=== PATIENT | male | born 1945 | race African-American/Black ===

== ENCOUNTER → 2020-04-25 | Outpatient (CLI) | payer MEDICARE ==
[2019-10-29 10:56] VITALS: BP 118/65
[~2020-04-25] MED LIST: ASPI-612 PO; ATOR40TA59 PO; METO25TA4 PO; NITR0.4T24 SL; TICA90TA PO
--- NOTE | 2020-04-25 10:42 | RAD ---
Clinical Indications: Hypertension, cerebrovascular accident. Exam : Carotid Duplex with Grayscale Ultrasound and Spectral and Color Doppler Analysis: PQRS Compliance Statement - Stenosis calculations for CT, MR and conventional angiography are based upon measurement of the distal ICA diameter in accordance with the NASCET methodology. Stenosis calculations for carotid ultrasound studies are derived from validated velocity criteria which are known to correlate with the NASCET methodology. Comparison study: None available. Findings: The common, internal and external carotid arteries were examined by grayscale, color and spectral Doppler ultrasound. Moderate atherosclerotic calcifications identified in the bilateral carotid bulbs and the proximal internal carotid arteries. Flow in both vertebral arteries was antegrade and normal. The following are the velocities and ratios in the carotid arteries on both sides: RIGHT ICA PV: 77cm/sec RIGHT CCA PV: 90cm/sec RIGHT ICA ED: 23cm/sec RIGHT IC/CCPV: 0.7 RIGHT VERTEBRAL: antegrade flow RIGHT % STENOSIS: Less than 50 percent LEFT ICA PV: 74cm/sec LEFT CCA PV: 88cm/sec LEFT ICA ED: 27cm/sec LEFT IC/CCPV: 0.8 LEFT VERTEBRAL: antegrade flow LEFT % STENOSIS: Less than 50 percent <50% ICA Stenosis: PSV < 125cm/s (EDV < 40cm/s; SVR < 2.0) 50-69% ICA Stenosis: PSV < 125-229cm/s (EDV 40-99cm/s; SVR 2.0-3.9) >70% ICA Stenosis: PSV > 230cm/s (EDV >100cm/s; SVR >4.0) Impression: No evidence of hemodynamically significant stenosis. Electronically signed by: Bryson Pike MD (04/25/2020 10:39 AM) [id number]
--- NOTE | 2020-04-25 16:10 | CARD ---
MR#: [id number] Date of Study: 04/25/2020 Ordering Physician: ARACELI NICHOLAS, Referring Physician: ARACELI NICHOLAS, Tech: Nicole Rodriguez [facility] APPROVED REPORT EXAM: Two-dimensional and M-mode echocardiogram with Doppler and color Doppler. Other Information Quality : AverageHR: 57bpm INDICATION Hypertension/HCVD RISK FACTORS Hypertension Hyperlipidemia 2D DIMENSIONS RVDd3.0 (2.9-3.5cm)Left Atrium(2D)4.5 (1.6-4.0cm) IVSd1.2 (0.7-1.1cm)Aortic Root(2D)3.0 (2.0-3.7cm) LVDd4.1 (3.9-5.9cm)LVOT Diameter2.2 (1.8-2.4cm) PWd1.4 (0.7-1.1cm)LVDs1.7 (2.5-4.0cm) FS (%) 59.6 %SV66.2 ml LVEF(%)89.5 (>50%) Aortic Valve AoV Peak Kobe.98.1cm/sAoV VTI23.6cm AO Peak GR.0.0mmHgLVOT Peak Kobe.87.7cm/s AO Mean GR.2mmHgAVA (VMAX)3.53cm2 Pulmonary Valve PV Peak Mxhgmizy39.3cm/s Tricuspid Valve TR P. Cceuqwxf374rp/sTR Peak Gr.33mmHg Pulmonary Vein S1 Kkrdmyxb22.8cm/sD2 Nwxbmebp70.1cm/s PVa [id number] LEFT VENTRICLE The left ventricle is normal size. There is mild concentric left ventricular hypertrophy. The left ve ntricular systolic function is normal and the ejection fraction is within normal range. EF 65% There is normal LV segmental wall motion. Tissue Doppler imaging reveals moderate left ventricular diastoli c dysfunction. RIGHT VENTRICLE The right ventricle is normal size. There is normal right ventricular wall thickness. The right ventr icular systolic function is normal. ATRIA The left atrium size is normal. The right atrium size is normal. The interatrial septum is intact wit h no evidence for an atrial septal defect or patent foramen ovale as noted on 2-D or Doppler imaging. AORTIC VALVE The aortic valve is normal in structure and function. Doppler and Color Flow revealed no significant aortic regurgitation. There is no significant aortic valvular stenosis. MITRAL VALVE The mitral valve is normal in structure and function. There is no evidence of mitral valve prolapse. There is no mitral valve stenosis. Doppler and Color-flow revealed mild mitral regurgitation. TRICUSPID VALVE The tricuspid valve is normal in structure and function. Doppler and Color Flow revealed mild tricusp id regurgitation. There is no tricuspid valve prolapse or vegetation. There is no tricuspid valve sherrie nosis. PULMONIC VALVE Doppler and Color Flow revealed no pulmonic valvular regurgitation. There is no pulmonic valvular sherrie nosis. GREAT VESSELS The aortic root is normal in size. The ascending aorta is normal in size. The pulmonary artery is nor mal. The IVC is normal in size and collapses >50% with inspiration. PERICARDIAL EFFUSION There is no evidence of significant pericardial effusion. Critical Notification Critical Value: No <Conclusion> The left ventricular systolic function is normal and the ejection fraction is within normal range. EF 65% There is normal LV segmental wall motion. Tissue Doppler imaging reveals moderate left ventricular diastolic dysfunction. Doppler and Color-flow revealed mild mitral regurgitation. Signed by : Araceli Nicholas, Electronically Approved : 04/25/2020 16:09:46
== END | disposition home or self-care (01) ==
LOC: ECHO 10:31
PROVIDERS: ATTEND Internal Medicine Cardiovascular Disease
DX: I08.1 Rheumatic disorders of both mitral and tricuspid valves (principal); I65.23 Occlusion and stenosis of bilateral carotid arteries; I11.9 Hypertensive heart disease without heart failure; I25.10 Atherosclerotic heart disease of native coronary artery without angina pectoris; I63.9 Cerebral infarction, unspecified; I70.0 Atherosclerosis of aorta
CPT/HCPCS: 93306; 93880

== ENCOUNTER → 2021-04-16 | Outpatient (CLI) | payer MEDICARE ==
[2019-10-29 10:56] VITALS: BP 118/65
[~2021-04-16] MED LIST changes: -ASPI-612 PO; +ASPI-886 PO
[2021-04-16 10:31] LABS: BASO # 0.1 x10^3/uL (0.0-0.2); BASO % 1 % (0-3); EOS # 0.1 x10^3/uL (0.0-0.7); EOS % 2 % (0-3); HEMATOCRIT 40.3 % (39.0-53.0); HEMOGLOBIN 13.5 g/dL (13.0-17.5); LYMPH # 1.4 x10^3/uL (1.0-4.8); LYMPH % 22 % (24-48); MEAN CORPUSCULAR HEMOGLOBIN 29 pg (25-35); MEAN CORPUSCULAR HGB CONC 33 g/dL (31-37); MEAN CORPUSCULAR VOLUME 86 fL (79-100); MONO # 0.7 x10^3/uL (0.0-1.1); MONO % 11 % (0-9); NEUT # 4.1 x10^3/uL (1.8-7.7); NEUT % 63 % (31-73); PLATELET COUNT 224 x10^3/uL (140-400); RED BLOOD COUNT 4.68 x10^6/uL (4.30-5.70); RED CELL DISTRIBUTION WIDTH 13.9 % (11.5-14.5); WHITE BLOOD COUNT 6.4 x10^3/uL (4.0-11.0)
--- NOTE | 2021-04-16 12:41 | CARD ---
MR#: [id number] Date of Study: 04/16/2021 Ordering Physician: ARACELI NICHOLAS, Referring Physician: ARACELI NICHOLAS, Tech: Kade Huynh [facility] APPROVED REPORT EXAM: Two-dimensional and M-mode echocardiogram with Doppler and color Doppler. Other Information Quality : GoodAverageHR: 59bpm Rhythm : NSR INDICATION Cardiac Disease: CAD RISK FACTORS Hypertension Hyperlipidemia 2D DIMENSIONS Left Atrium(2D)3.6 (1.6-4.0cm)IVSd0.8 (0.7-1.1cm) Aortic Root(2D)3.2 (2.0-3.7cm)LVDd4.8 (3.9-5.9cm) LVOT Diameter2.0 (1.8-2.4cm)PWd0.8 (0.7-1.1cm) LVDs2.3 (2.5-4.0cm)FS (%) 51.5 % SV87.4 mlLVEF(%)82.7 (>50%) Aortic Valve AoV Peak Kobe.119.8cm/sAoV VTI26.5cm AO Peak GR.5.7mmHgLVOT Peak Kobe.103.2cm/s AO Mean GR.3mmHgAVA (VMAX)2.59cm2 Mitral Valve MV E Qmxrigoo70.6cm/sMV E Peak Gr.2mmHg MV DECEL [id number] A Psomxzpf82.6cm/s MV E Mean Gr.1mmHgE/A Ratio0.7 Pulmonary Valve PV Peak Plxzslpx81.4cm/s Tricuspid Valve TR P. Faucelip872yg/sTR Peak Gr.28mmHg Pulmonary Vein S1 Orakdkie74.3cm/sD2 Kivqnmye07.5cm/s LEFT VENTRICLE The left ventricle is normal size. There is normal left ventricular wall thickness. The left ventricu lar systolic function is normal. The ejection fraction is 60-65%. There is normal LV segmental wall m otion. Transmitral Doppler flow pattern is Grade I-abnormal relaxation pattern. No left ventricle thr ombus noted on this study. There is no left ventricular aneurysm. There is no mass noted in the left ventricle. RIGHT VENTRICLE The right ventricle is normal size. There is normal right ventricular wall thickness. The right ventr icular systolic function is normal. ATRIA The left atrium is mildly dilated. The right atrium size is normal. The interatrial septum is intact with no evidence for an atrial septal defect or patent foramen ovale as noted on 2-D or Doppler imagi ng. AORTIC VALVE The aortic valve is normal in structure and function. Doppler and Color Flow revealed no significant aortic regurgitation. There is no significant aortic valvular stenosis. There is no aortic valvular v egetation. MITRAL VALVE The mitral valve is normal in structure and function. There is no evidence of mitral valve prolapse. There is no mitral valve stenosis. Doppler and Color-flow revealed mild mitral regurgitation. TRICUSPID VALVE The tricuspid valve is normal in structure and function. Doppler and Color Flow revealed mild to mode rate tricuspid regurgitation. There is no tricuspid valve prolapse or vegetation. There is no tricusp id valve stenosis. GREAT VESSELS The aortic root is normal in size. The ascending aorta is normal in size. The pulmonary artery is nor mal. The IVC is normal in size and collapses >50% with inspiration. PERICARDIAL EFFUSION There is no pleural effusion. There is no evidence of significant pericardial effusion. Critical Notification Critical Value: No <Conclusion> The left ventricular systolic function is normal. The ejection fraction is 60-65%. There is normal LV segmental wall motion. Transmitral Doppler flow pattern is Grade I-abnormal relaxation pattern. Mild mitral regurgitation. Mild to moderate tricuspid regurgitation. There is no evidence of significant pericardial effusion. Signed by : Delvis Brown, Electronically Approved : 04/16/2021 12:40:23
[2021-04-16 14:21] LABS: ALBUMIN 3.9 g/dL (3.4-5.0); ALBUMIN/GLOBULIN RATIO 1.1 (1.0-1.7); CALCIUM 8.9 mg/dL (8.5-10.1); CREATININE 1.5 mg/dL (0.7-1.3); GFR 54.8; POTASSIUM 3.7 mmol/L (3.5-5.1); TOTAL BILIRUBIN 0.4 mg/dL (0.2-1.0); TOTAL PROTEIN 7.4 g/dL (6.4-8.2)
[2021-04-16 14:25] LABS: CHOLESTEROL/HDL RATIO 3.1
== END ==
LOC: ECHO 08:42
PROVIDERS: ATTEND Internal Medicine Cardiovascular Disease
DX: I08.1 Rheumatic disorders of both mitral and tricuspid valves (principal); I25.10 Atherosclerotic heart disease of native coronary artery without angina pectoris
CPT/HCPCS: 36415; 80053; 80061; 83721; 85025; 93306